=== PATIENT | male | born 2000 | race Caucasian/White ===

== ENCOUNTER 2020-05-24 13:23 | Emergency (ER) | payer BC, SELFPAY ==
[2020-05-24 13:45] VITALS: BP 126/69; PULSE 92; RESP 16; TEMP 37.2; O2SAT 98
--- NOTE | 2020-05-24 13:47 | ED.SKABFB ---
HPI - Skin/Abscess/Foreign Bdy General Chief complaint: Skin/Abscess/Foreign Body Stated complaint: bump on L side of face Time Seen by Provider: 05/24/20 13:37 Source: patient and RN notes reviewed Mode of arrival: ambulatory Limitations: no limitations History of Present Illness complaint: abscess/boil Onset (ago): day(s) (3-4) Location: face Severity: mild Quality: dull and constant Pain Consistency: constant Relieving factors: none Exacerbating factors: palpation Context: none Associated symptoms: denies other symptoms Treatments prior to arrival: attempted to drain pus at home Related Data Home Medications Medication Instructions Recorded Confirmed No Home Medications 05/24/20 05/24/20 Allergies Allergy/AdvReac Type Severity Reaction Status Date / Time Penicillins Allergy Unknown Verified 05/24/20 14:21 Review of Systems Review of Systems: All systems reviewed & are unremarkable except as noted in HPI and below PMFSH Past Medical History Medical History (Updated 05/24/20 @ 14:23 by Juan Thornton MD) No active medical problems Surgical History Surgical History (Updated 05/24/20 @ 13:48 by Juan Thornton MD) No pertinent past surgical history Social History Social History (Updated 05/24/20 @ 13:49 by Juan Thornton MD) Smoking status: Never smoker Alcohol intake: never Substance use: never Exam Const: General: healthy appearing, no acute distress and alert Nutritional Appearance: well nourished Orientation/consciousness: patient oriented x3 HENMT: Head: normal to inspection Ears: external ears normal General nose exam: Normal external nose present Face and sinus: normal facial exam Mouth: Yes lip normal and Yes moist mucous membranes Eyes: Conjunctivae: conjunctivae normal Pupils: Equal, round and reactive pupils present EOM: EOMs intact bilaterally Neck: Neck: normal visual inspection Resp: Effort & Inspection: normal respiratory effort Auscultation: clear to auscultation bilaterally Cardio: Rate: regular rate Rhythm: regular rhythm GI: Auscultation: normal bowel sounds Back/Spine/Pelvis: Cervical Spine: cervical ROM normal Thoracic/Lumbar Spine: thoraco-lumbar ROM normal Skin: General skin exam: normal color Lesions: lesion noted pustule left central jaw size (2 cm), color with an erythematous base, consistency fluctuant, morphology, surface and tender Rashes: no rashes Neuro: General: patient oriented x3, moves all extremities and no focal motor deficits Speech: normal speech Gait exam (Neuro): Normal gait present Extrem: General: normal to inspection and no clubbing, cyanosis or edema Psych: Appearance: grossly normal and well kempt Mental Status: mental status grossly normal Affect: normal affect Attitude: cooperative Thought content: Yes Normal thought content present Course Vital Signs Vital signs: Vital Signs Temperature 37.2 C 05/24/20 13:45 Pulse Rate 92 05/24/20 13:45 Respiratory Rate 16 05/24/20 13:45 Blood Pressure 126/69 05/24/20 13:45 Pulse Oximetry 98 05/24/20 13:45 Temperature 37.2 C 05/24/20 13:45 Pulse Rate 92 05/24/20 13:45 Respiratory Rate 16 05/24/20 13:45 Blood Pressure 126/69 05/24/20 13:45 Pulse Oximetry 98 05/24/20 13:45 Procedures Abscess I/D face: Date of Incision: 05/24/20 Time of Incision: 13:54 Side (if applicable): left Sedation/analgesia: none Local Anesthetic: lidocaine 1% Amount of anesthesia used (mL): 4 Technique: incised with #11 blade Irrigation: No Packing used?: none I&D Results: Pus and Blood Discharge Plan Discharge Clinical Impression: Abscess of skin or subcutaneous tissue Qualifiers: Site of cutaneous abscess: face Qualified Code(s): L02.01 - Cutaneous abscess of face Patient Disposition: Home, Self-Care Condition: Stable Instructions: Abscess (ED) Prescriptions: No Action
== END 2020-05-24 14:29 | disposition home or self-care (01) ==
PROVIDERS: Emergency Provider Emergency Medicine
DX: L02.01 Cutaneous abscess of face (principal)
CPT/HCPCS: 10060; 10160; 87070; 87077; 87186; 87205; 99282; 99283